=== PATIENT | female | born 1940 | race Caucasian/White ===

== ENCOUNTER 2017-04-30 15:29 | Emergency (ER) | payer SELFPAY ==
[~2017-04-30] VITALS: Ht 160 cm; Wt 50.0 kg
[2017-04-30 15:52] VITALS: BP 125/69
[2017-04-30] MEDS ORDERED: PLAVIX75 MG PO (15:57)
[2017-04-30] MEDS ORDERED: DILTIAZEM180 M1 PO (15:57)
[2017-04-30] MEDS ORDERED: LOSARTAN POT25 MG PO (15:57)
[2017-04-30] MEDS ORDERED: XARELTO10 MG PO (15:58)
== END 2017-04-30 17:10 | disposition left against medical advice (07) | DRG 951 ==
LOC: ED 15:29 → LWOBS 17:10
DX: Z91.19 Patient's noncompliance with other medical treatment and regimen (principal)